=== PATIENT | male | born 1985 | race American Indian/Alaskan Native ===

== ENCOUNTER 2016-11-05 12:12 | Emergency (ER) | payer OTHER ==
[2016-11-05 12:17] VITALS: BP 129/72
[2016-11-05] MEDS ORDERED: TORADOL IM ONE (13:15)
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
--- NOTE | 2016-11-05 16:59 | XRay Report ---
FINAL REPORT PROCEDURE: XR HAND 2V RT TECHNIQUE: Two views right hand HISTORY: Pain at base of metacarple fracture 4th digit COMPARISON: No prior studies are available for comparison. FINDINGS: Suspect mild swelling around the wrist and hand area. No definitive evidence of acute fracture seen specifically at the base of the 4th metacarpal on limited views IMPRESSION: No acute fracture suspected
== END 2016-11-05 16:33 | disposition home or self-care (01) ==
LOC: ED 12:12
DX: S62.344A Nondisplaced fracture of base of fourth metacarpal bone, right hand, initial encounter for closed fracture (principal); V89.2XXA Person injured in unspecified motor-vehicle accident, traffic, initial encounter; Y93.9 Activity, unspecified; Y99.9 Unspecified external cause status; Y92.9 Unspecified place or not applicable
CPT/HCPCS: 73100; 73120; 96372; 99283; J1885